=== PATIENT | male | born 1970 | race Caucasian/White ===

== ENCOUNTER 2018-10-15 09:24 | Inpatient (IN) | payer OTHER ==
[2018-10-15 10:21] VITALS: BMI 21.7
--- NOTE | 2018-10-15 11:07 | HP ---
COWS - Scale Resting Pulse: 1= [place] 81-100 Sweatin= Chills/Flushing Restless Observation: 0= Sits Still Pupil Size: 0= Normal to Room Light Bone or Joint Aches: 4=Acute Joint/Muscle Pain Runny Nose/ Eye Tearin= Runny Nose/Eyes GI Upset > 30mins: 2= Nausea/Diarrhea Tremor Observation: 0= None Yawning Observation: 0= None Anxiety or Irritability: 2=Irritable/Anxious Goose Flesh Skin: 0=Smooth Skin COWS Score: 12 CIWA Score Nausea/Vomitin-No Nausea/No Vomiting Muscle Tremors: None Anxiety: 4-Mod. Anxious/Guarded Agitation: 4-Moderately Restless Paroxysmal Sweats: No Perspiration Orientation: 0-Oriented Tacttile Disturbances: 0-None Auditory Disturbances: 0-None Visual Disturbances: 0-None Headache: 0-None Present CIWA-Ar Total Score: 8 - Admission Criteria OASAS Guidelines: Admission for Medically Managed Detox: Requires at least one of the followin. CIWA greater than 12 2. Seizures within the past 24 hours 3. Delirium tremens within the past 24 hours 4. Hallucinations within the past 24 hours 5. Acute intervention needed for co occurring medical disorder 6. Acute intervention needed for co occurring psychiatric disorder 7. Severe withdrawal that cannot be handled at a lower level of care (continued vomiting, continued diarrhea, abnormal vital signs) requiring intravenous medication and/or fluids 8. Admission ROS [facility] - [facility] Allergies/Adverse Reactions: Allergies Allergy/AdvReac Type Severity Reaction Status Date / Time No Known Allergies Allergy Verified 10/15/18 10:06 History of Present Illness: pt here requesting detox from etoh and opiate use , reports etoh since age 20 , current daily use 2 beers/day and 1 pint liquor , latest use yesterday , current symptoms as above, reports w/d seizures most recently while in another detox, transferred to hospital . reports opiate use 40-50 bags /day ivdu in [place] , needles from the exchange , denies sharing , or re-using, + abscess in the past , OD x 2 , most recently 2007 , Narcan by EMS , taken to [facility] . Latest use today , current symptoms as above. tobacco : 1 ppd cocaine : 5-6 gr/day ivdu denies benzo methadone - denies oxycodone- denies PMHX : DM II , cardiac stents x 2 2004 on ASA 81 mg , r hand laceration in childhood. PSych ; denies meds : denies Exam Limitations: Clinical Condition - Ebola screening Have you traveled outside of the country in the last 21 days: No (N) Have you had contact with anyone from an Ebola affected area: No Do you have a fever: No - Review of Systems Constitutional: See HPI, Loss of Appetite EENT: reports: See HPI, Other (denies vision loss upper and lower dentures) Respiratory: reports: No Symptoms reported Cardiac: reports: No Symptoms Reported GI: reports: See HPI : reports: No Symptoms Reported Musculoskeletal: reports: Muscle Pain Neuro: reports: Seizure Endocrine: reports: See HPI Psychiatric: reports: Orientated x3, Agitated, Anxious Patient History - Smoking Cessation Smoking history: Current every day smoker Initiated information on smoking cessation: No - Substances abused Alcohol Substance route: Oral Frequency: 3-6 times per week Amount used: 3 x12 oz beers, whisky i pint Age of first use: 19 Date of last use: 10/11/18 Cocaine Substance route: Injection Frequency: Daily Amount used: 40-50 bags/day Age of first use: 19 Date of last use: 10/15/18 Heroin Substance route: Injection Frequency: Daily Amount used: 40-50 bags Age of first use: 15 Date of last use: 10/15/18 Family Disease History - Family Disease History Family Disease History: CA: Mother (breast CA ), Other: Father (d.44 hiv ,cva ) , Mother, Brother (1 brother w/ liver CA ), Sister (A &W ), Son (2 A & W ), Daughter (2 A & W ) Admission Physical Exam [facility] - Vital Signs Vital Signs: Vital Signs - 24 hr 10/15/18 10:05 Temperature 98.9 F Pulse Rate 87 Respiratory 16 Rate Blood Pressure 118/78 - Physical General Appearance: Yes: Disheveled, Intoxicated, Irritable, Anxious HEENTM: Yes: EOMI, Hearing grossly Normal, Normocephalic, Normal Voice, Nasal Congestion, Rhinorrhea, Muffled/Hoarse Voice, Other (poor dentition , many missing teeth) Respiratory: Yes: Chest Non-Tender, Lungs Clear, Normal Breath Sounds Neck: Yes: No masses,lesions,Nodules, Trachea in good position Cardiology: Yes: Regular Rhythm, Regular Rate, S1, S2 Abdominal: Yes: Non Tender, Soft Back: Yes: Normal Inspection Musculoskeletal: Yes: Within Normal Limits, Gait Steady Extremities: Yes: Normal Range of Motion, Non-Tender Neurological: Yes: Fully Oriented, Alert, Motor Strength 5/5 Integumentary: Yes: Warm, Track Reid ([place] pretibial maculopapular excoriations , states was helping mother move furniture and fumigoate home 2/2 bed bugs and was bitten .) - Diagnostic (1) Opioid dependence Current Visit: Yes Status: Acute Qualifiers: Substance use status: in withdrawal Qualified Code(s): F11.23 - Opioid dependence with withdrawal (2) Cocaine dependence Current Visit: Yes Status: Chronic Qualifiers: Substance use status: uncomplicated Qualified Code(s): F14.20 - Cocaine dependence, uncomplicated (3) Alcohol abuse Current Visit: Yes Status: Chronic (4) Nicotine dependence Current Visit: Yes Status: Chronic Qualifiers: Nicotine product type: cigarettes Breathalyzer - Breathalyzer Breathalyzer: 0 Urine Drug Screen - Test Device Lot number: [id number] Expiration date: 06/25/20 - Control Is test valid?: Yes - Results Drug screen NEGATIVE: No Urine drug screen results: OMAR-Cocaine, MOP-Opiates, OXY-Oxycodone, MTD- Methadone, BZO-Benzodiazepines, BUP-Suboxone Inpatient Rehab Admission - Rehab Decision to Admit Inpatient rehab admission?: No
[2018-10-15] MEDS ORDERED: MENTHOL/PHENOL 1 EACH UD MM PRN (11:26)
[2018-10-15] MEDS ORDERED: METHOCARBAMOL 500 MG TABLET PO PRN (11:26)
[2018-10-15] MEDS ORDERED: hydrOXYzine PAMOATE 25 MG CAPSULE (FP) PO PRN (11:26)
[2018-10-15] MEDS ORDERED: chlordiazePOXIDE HCL 25 MG CAPSULE PO PRN (11:26)
[2018-10-15] MEDS ORDERED: BISMUTH SUBSALICYLATE 262 MG/15 ML BTL PO PRN (11:26)
[2018-10-15] MEDS ORDERED: NICOTINE POLACRILEX 2 MG GUM BUC PRN (11:26)
[2018-10-15] MEDS ORDERED: MAG HYDROX/AL HYDROX/SIMETH 30 ML UNIT-DOSE CUP PO PRN (11:26)
[2018-10-15] MEDS ORDERED: MAGNESIUM CITRATE 300 ML BOTTLE PO PRN (11:26)
[2018-10-15] MEDS ORDERED: cloNIDine HCL 0.1 MG TABLET PO PRN (11:26)
[2018-10-15] MEDS ORDERED: ACETAMINOPHEN 325 MG TABLET (FP) PO PRN ×2 (11:26)
[2018-10-15] MEDS ORDERED: MAGNESIUM HYDROX 2400MG/30ML ORAL SUSPENSION 30 ML CUP PO PRN (11:26)
[2018-10-15] MEDS ORDERED: IBUPROFEN 400 MG TABLET (FP) PO PRN (11:26)
[2018-10-15] MEDS ORDERED: ASPIRIN 325 MG TABLET PO SCH (12:30)
[2018-10-15] MEDS: ASPIRIN 81 MG CHEWABLE TABLETS PO SCH (15:35)
[2018-10-15] MEDS: INSULIN SLIDING SCALE (NOVOLOG) 1 VIAL SQ SCH (17:20)
[2018-10-15] MEDS: chlordiazePOXIDE HCL 25 MG CAPSULE PO SCH ×2 (18:00→22:17)
[2018-10-15] MEDS: MELATONIN 5 MG TABLETS PO PRN (22:17)
[2018-10-15] MEDS: THIAMINE HCL 100 MG TABLET (FP) PO SCH (22:17)
[2018-10-15] MEDS ORDERED: METHADONE HCL 10 MG TABLET (FOR DETOX USE ONLY) PO ONE (23:00)
[2018-10-16] MEDS: chlordiazePOXIDE HCL 25 MG CAPSULE PO SCH ×4 (06:36→22:09)
[2018-10-16] MEDS: INSULIN SLIDING SCALE (NOVOLOG) 1 VIAL SQ SCH ×2 (06:36→17:41)
[2018-10-16] MEDS ORDERED: METHADONE HCL 10 MG TABLET (FOR DETOX USE ONLY) PO ONE (10:00)
[2018-10-16 10:14] LABS: HEMATOCRIT 37.6 % (35.4-49); HEMOGLOBIN 12.1 GM/dL (11.7-16.9); MCH 27.1 pg (25.7-33.7); MCHC 32.1 g/dl (32.0-35.9); MEAN CELL VOLUME 84.3 fl (80-96); MEAN PLT VOLUME 8.4 fl (7.5-11.1); PLATELET COUNT 265 K/MM3 (134-434); RBC 4.46 M/mm3 (4.00-5.60); RDW 14.6 % (11.9-15.9); WHITE BLOOD COUNT 8.8 K/mm3 (4.0-10.0)
[2018-10-16 10:16] LABS: ALBUMIN 2.8 g/dl (3.4-5.0); BILIRUBIN,TOTAL 0.5 mg/dL (0.2-1); CALCIUM 8.5 mg/dL (8.5-10.1); CREATININE 0.9 mg/dL (0.55-1.3); POTASSIUM 3.8 mmol/L (3.5-5.1); TOT PROT 6.4 g/dl (6.4-8.2)
[2018-10-16] MEDS: PRENATAL VITAMINS W/ FOLIC ACID TABLET (FP) PO SCH (10:34)
[2018-10-16] MEDS: ASPIRIN 81 MG CHEWABLE TABLETS PO SCH (10:34)
--- NOTE | 2018-10-16 13:24 | EKG ---
Test Reason : Blood Pressure : / mmHG Vent. Rate : 070 BPM Atrial Rate : 070 BPM P-R Int : 150 ms QRS Dur : 090 ms QT Int : 398 ms P-R-T Axes : 012 086 026 degrees QTc Int : 429 ms NORMAL SINUS RHYTHM NORMAL ECG NO PREVIOUS ECGS AVAILABLE Confirmed by DIANE BARNHART MD ([id number]) on 10/16/2018 1:24:05 PM Referred By: ATILIO Confirmed By:DIANE BARNHART MD
--- NOTE | 2018-10-16 17:39 | PN ---
[facility] CIWA - CIWA Score Nausea/Vomitin-No Nausea/No Vomiting Muscle Tremors: None Anxiety: 4-Mod. Anxious/Guarded Agitation: 3 Paroxysmal Sweats: 2 Orientation: 0-Oriented Tacttile Disturbances: 1-Very Mild Itch/Numbness Auditory Disturbances: 0-None Visual Disturbances: 1-Very Mild Sensitivity Headache: 0-None Present CIWA-Ar Total Score: 11 S COWS - Scale Resting Pulse: 1= [place] 81-100 Sweatin= Chills/Flushing Restless Observation: 1= Difficult to Sit Still Pupil Size: 0= Normal to Room Light Bone or Joint Aches: 2= Severe Diffuse Aches Runny Nose/ Eye Tearin= None GI Upset > 30mins: 0= None Tremor Observation of Outstretched Hands: 0= None Yawning Observation: 1= 1-2x During Session Anxiety or Irritability: 2=Irritable/Anxious Goose Flesh Skin: 3=Piloerection COWS Score: 11 S Progress Note (SOAP) Subjective: Body Aches, Anxious, Restless, Interrupted Sleep. Objective: PATIENT A & O X 3, OBSERVED AMBULATING ON UNIT UNASSISTED. IN NO ACUTE DISTRESS. 10/16/18 17:40 Vital Signs Temperature 98.3 F 10/16/18 17:10 Pulse Rate 75 10/16/18 17:10 Respiratory Rate 18 10/16/18 17:10 Blood Pressure 134/86 10/16/18 17:10 O2 Sat by Pulse Oximetry (%) Laboratory Tests 10/15/18 10/15/18 10/16/18 11:50 16:22 06:28 WBC RBC Hgb Hct MCV MCH MCHC RDW Plt Count MPV Sodium Potassium Chloride Carbon Dioxide Anion Gap BUN Creatinine Est GFR (CKD-EPI)AfAm Est GFR (CKD-EPI)NonAf POC Glucometer 112 132 142 Random Glucose Calcium Total Bilirubin AST ALT Alkaline Phosphatase Total Protein Albumin 10/16/18 10/16/18 10/16/18 07:40 07:40 16:32 WBC 8.8 RBC 4.46 Hgb 12.1 Hct 37.6 MCV 84.3 MCH 27.1 MCHC 32.1 RDW 14.6 Plt Count 265 MPV 8.4 Sodium 138 Potassium 3.8 Chloride 103 Carbon Dioxide 30 Anion Gap 6 L BUN 16 Creatinine 0.9 Est GFR (CKD-EPI)AfAm 118.30 Est GFR (CKD-EPI)NonAf 102.07 POC Glucometer 124 Random Glucose 134 H Calcium 8.5 Total Bilirubin 0.5 AST 15 ALT 20 Alkaline Phosphatase 115 Total Protein 6.4 Albumin 2.8 L LABS NOTED. RPR RESULT PENDING. 10/16/18 17:41 Assessment: 10/16/18 17:41 WITHDRAWAL SYMPTOMS. Plan: CONTINUE DETOX.
[2018-10-16] MEDS: THIAMINE HCL 100 MG TABLET (FP) PO SCH (22:09)
[2018-10-16] MEDS: MELATONIN 5 MG TABLETS PO PRN (22:09)
[2018-10-17] MEDS: chlordiazePOXIDE HCL 25 MG CAPSULE PO SCH ×2 (05:54→10:37)
[2018-10-17] MEDS: INSULIN SLIDING SCALE (NOVOLOG) 1 VIAL SQ SCH (08:04)
[2018-10-17 09:40] VITALS: BP 126/85; PULSE 68; TEMP 98.2
[2018-10-17] MEDS ORDERED: METHADONE HCL 10 MG TABLET (FOR DETOX USE ONLY) PO ONE (10:00)
[2018-10-17] MEDS: PRENATAL VITAMINS W/ FOLIC ACID TABLET (FP) PO SCH (10:37)
[2018-10-17] MEDS: ASPIRIN 81 MG CHEWABLE TABLETS PO SCH (10:37)
--- NOTE | 2018-10-17 11:38 | PN ---
[facility] CIWA - CIWA Score Nausea/Vomitin-Mild Nausea/No Vomiting Muscle Tremors: 2 Anxiety: 2 Agitation: 2 Paroxysmal Sweats: 1-Minimal Palms Moist Orientation: 0-Oriented Tacttile Disturbances: 0-None Auditory Disturbances: 0-None Visual Disturbances: 0-None Headache: 2-Mild CIWA-Ar Total Score: 10 BHS COWS - Scale Resting Pulse: 0= [place] 80 or Below Sweatin= Chills/Flushing Restless Observation: 1= Difficult to Sit Still Pupil Size: 0= Normal to Room Light Bone or Joint Aches: 1= Mild Discomfort Runny Nose/ Eye Tearin= Nasal Congestion GI Upset > 30mins: 2= Nausea/Diarrhea Tremor Observation of Outstretched Hands: 2= Slight Tremor Visible Yawning Observation: 0= None Anxiety or Irritability: 2=Irritable/Anxious Goose Flesh Skin: 0=Smooth Skin COWS Score: 10 S Progress Note (SOAP) Subjective: Irritability, anxiety, interrupted sleep Objective: 10/17/18 11:36 Last Vital Signs Temp Pulse Resp BP Pulse Ox 98.2 F 68 18 126/85 10/17/18 09:39 10/17/18 09:39 10/17/18 09:39 10/17/18 09:39 Laboratory Last Values WBC 8.8 K/mm3 (4.0-10.0) 10/16/18 07:40 RBC 4.46 M/mm3 (4.00-5.60) 10/16/18 07:40 Hgb 12.1 GM/dL (11.7-16.9) 10/16/18 07:40 Hct 37.6 % (35.4-49) 10/16/18 07:40 MCV 84.3 fl (80-96) 10/16/18 07:40 MCH 27.1 pg (25.7-33.7) 10/16/18 07:40 MCHC 32.1 g/dl (32.0-35.9) 10/16/18 07:40 RDW 14.6 % (11.9-15.9) 10/16/18 07:40 Plt Count 265 K/MM3 (134-434) 10/16/18 07:40 MPV 8.4 fl (7.5-11.1) 10/16/18 07:40 Sodium 138 mmol/L (136-145) 10/16/18 07:40 Potassium 3.8 mmol/L (3.5-5.1) 10/16/18 07:40 Chloride 103 mmol/L (98-107) 10/16/18 07:40 Carbon Dioxide 30 mmol/L (21-32) 10/16/18 07:40 Anion Gap 6 MMOL/L (8-16) L 10/16/18 07:40 BUN 16 mg/dL (7-18) 10/16/18 07:40 Creatinine 0.9 mg/dL (0.55-1.3) 10/16/18 07:40 Est GFR (CKD-EPI)AfAm 118.30 10/16/18 07:40 Est GFR (CKD-EPI)NonAf 102.07 10/16/18 07:40 POC Glucometer 124 UNITS (80-120) 10/16/18 16:32 Random Glucose 134 mg/dL (74-106) H 10/16/18 07:40 Calcium 8.5 mg/dL (8.5-10.1) 10/16/18 07:40 Total Bilirubin 0.5 mg/dL (0.2-1) 10/16/18 07:40 AST 15 U/L (15-37) 10/16/18 07:40 ALT 20 U/L (13-61) 10/16/18 07:40 Alkaline Phosphatase 115 U/L (45-117) 10/16/18 07:40 Total Protein 6.4 g/dl (6.4-8.2) 10/16/18 07:40 Albumin 2.8 g/dl (3.4-5.0) L 10/16/18 07:40 RPR Titer Nonreactive (NONREACTIVE) 10/16/18 07:40 Labs noted-no panic values Alert, no apparent distress Assessment: 10/17/18 11:37 Withdrawal sx Plan: Continue detox
--- NOTE | 2018-10-17 13:32 | DS ---
[facility] Detox Discharge Summary Admission Date: 10/15/18 Discharge Date: 10/17/18 - History Present History: Alcohol Dependence, Cocaine Dependence, Opioid Dependence, Sedative Dependence Pertinent Past History: Illicit drug use - Physical Exam Results Vital Signs: Vital Signs Temperature 98.2 F 10/17/18 09:39 Pulse Rate 68 10/17/18 09:39 Respiratory Rate 18 10/17/18 09:39 Blood Pressure 126/85 10/17/18 09:39 O2 Sat by Pulse Oximetry (%) Pertinent Admission Physical Exam Findings: Withdrawal sx Laboratory Last Values WBC 8.8 K/mm3 (4.0-10.0) 10/16/18 07:40 RBC 4.46 M/mm3 (4.00-5.60) 10/16/18 07:40 Hgb 12.1 GM/dL (11.7-16.9) 10/16/18 07:40 Hct 37.6 % (35.4-49) 10/16/18 07:40 MCV 84.3 fl (80-96) 10/16/18 07:40 MCH 27.1 pg (25.7-33.7) 10/16/18 07:40 MCHC 32.1 g/dl (32.0-35.9) 10/16/18 07:40 RDW 14.6 % (11.9-15.9) 10/16/18 07:40 Plt Count 265 K/MM3 (134-434) 10/16/18 07:40 MPV 8.4 fl (7.5-11.1) 10/16/18 07:40 Sodium 138 mmol/L (136-145) 10/16/18 07:40 Potassium 3.8 mmol/L (3.5-5.1) 10/16/18 07:40 Chloride 103 mmol/L (98-107) 10/16/18 07:40 Carbon Dioxide 30 mmol/L (21-32) 10/16/18 07:40 Anion Gap 6 MMOL/L (8-16) L 10/16/18 07:40 BUN 16 mg/dL (7-18) 10/16/18 07:40 Creatinine 0.9 mg/dL (0.55-1.3) 10/16/18 07:40 Est GFR (CKD-EPI)AfAm 118.30 10/16/18 07:40 Est GFR (CKD-EPI)NonAf 102.07 10/16/18 07:40 POC Glucometer 124 UNITS (80-120) 10/16/18 16:32 Random Glucose 134 mg/dL (74-106) H 10/16/18 07:40 Calcium 8.5 mg/dL (8.5-10.1) 10/16/18 07:40 Total Bilirubin 0.5 mg/dL (0.2-1) 10/16/18 07:40 AST 15 U/L (15-37) 10/16/18 07:40 ALT 20 U/L (13-61) 10/16/18 07:40 Alkaline Phosphatase 115 U/L (45-117) 10/16/18 07:40 Total Protein 6.4 g/dl (6.4-8.2) 10/16/18 07:40 Albumin 2.8 g/dl (3.4-5.0) L 10/16/18 07:40 RPR Titer Nonreactive (NONREACTIVE) 10/16/18 07:40 Labs noted - Medication Discharge Medications: Ambulatory Orders NK [No Known Home Medication] 10/15/18 - Diagnosis (1) Opioid dependence Current Visit: Yes Status: Acute Qualifiers: Substance use status: in withdrawal Qualified Code(s): F11.23 - Opioid dependence with withdrawal (2) Alcohol abuse Current Visit: Yes Status: Chronic (3) Cocaine dependence Current Visit: Yes Status: Chronic Qualifiers: Substance use status: uncomplicated Qualified Code(s): F14.20 - Cocaine dependence, uncomplicated (4) Nicotine dependence Current Visit: Yes Status: Chronic Qualifiers: Nicotine product type: cigarettes - AMA Did Patient Leave Against Medical Advice: Yes (Pt adamant on leaving due to home emergency)
[2018-10-17] MEDS ORDERED: chlordiazePOXIDE HCL 10 MG CAPSULE PO SCH (17:00)
[2018-10-17] MEDS ORDERED: chlordiazePOXIDE HCL 10 MG CAPSULE PO PRN (17:00)
[2018-10-18] MEDS ORDERED: METHADONE HCL 10 MG TABLET (FOR DETOX USE ONLY) PO ONE (10:00)
[2018-10-18] MEDS ORDERED: chlordiazePOXIDE HCL 10 MG CAPSULE PO SCH (17:00)
[2018-10-19] MEDS ORDERED: METHADONE HCL 5 MG TABLET (FOR DETOX USE ONLY) PO ONE (06:00)
== END 2018-10-17 13:40 | disposition left against medical advice (07) | DRG 770 ==
LOC: YASAS 09:24 → Y3N 11:36
PROVIDERS: ADMIT Surgery; ATTEND Surgery
PROC: HZ2ZZZZ Detoxification Services for Substance Abuse Treatment (ICD-10-PCS; principal; 2018-10-15)
DX: F11.23 Opioid dependence with withdrawal (principal); F14.20 Cocaine dependence, uncomplicated; F10.10 Alcohol abuse, uncomplicated; F17.210 Nicotine dependence, cigarettes, uncomplicated; Z79.82 Long term (current) use of aspirin; Z95.5 Presence of coronary angioplasty implant and graft
CPT/HCPCS: 36415; 80053; 82962; 85027; 86593; 93005; 93010; J0735